=== PATIENT | male | born 1965 | race Caucasian/White ===

== ENCOUNTER 2020-09-03 15:39 | Inpatient (IN) ==
[2020-09-04] MEDS: Acetaminophen 325 MG TABLET PO PRN (17:42)
[2020-09-04] MEDS: Metoprolol XL (24 HR) Succ 25 MG TAB.ER.24H PO SCH (17:43)
[2020-09-04] MEDS: Gabapentin 300 MG CAPSULE PO SCH (21:05)
[2020-09-04] MEDS ORDERED: Morphine Sulfate 2 MG/ML SYRINGE IVP ONE (22:16)
[2020-09-04] MEDS ORDERED: Nitroglycerin 1 INCH/GM PACKET TP ONE (22:58)
[2020-09-04] MEDS ORDERED: Nitroglycerin 0.4 MG TAB.SUBL SL PRN (22:59)
[2020-09-04] MEDS ORDERED: Ondansetron 4 MG/2 ML VIAL IVP ONE (23:31)
[2020-09-04] MEDS ORDERED: *HR* FentaNYL (PF) 100 MCG/2 ML VIAL IVP ONE (23:47)
[2020-09-05] MEDS ORDERED: GI Cocktail 40 ML EACH PO ONE (00:08)
[2020-09-05] MEDS ORDERED: Ondansetron 4 MG/2 ML VIAL IVP PRN (04:47)
[2020-09-05] MEDS: dexAMETHasone 4 MG TABLET PO SCH (07:42)
[2020-09-05] MEDS: Famotidine 20 MG TABLET PO SCH (07:42)
[2020-09-05] MEDS: Gabapentin 300 MG CAPSULE PO SCH ×3 (07:42→20:14)
[2020-09-05] MEDS: Multivit/Ca/Min/Fe/FA 1 TAB TABLET PO SCH (07:43)
[2020-09-05 10:15] LABS: Basophils # 0.1 K/mcL (0.0-0.2); Basophils % 0.8 %; Eosinophils % 0.1 %; Hemoglobin 18.1 g/dL (12.9-16.9); Immature Granulocytes % 1.9 % (0-4); Lymphocytes # 1.1 K/mcL (0.6-4.6); Lymphocytes % 11.3 %; Mean Corpuscular HGB Conc 34.8 g/dL (31.6-35.5); Mean Corpuscular Hemoglobin 31.6 pg (28.0-33.3); Mean Corpuscular Volume 90.9 fL (83.0-100.0); Mean Platelet Volume 9.8 fL (9.4-12.4); Monocytes # 0.6 K/mcL (0.0-1.3); Monocytes % 6.5 %; Neutrophils # 7.5 K/mcL (1.6-8.9); Platelet Count 174 K/mcL (140-400); Red Blood Count 5.72 M/mcL (4.19-5.50); Red Cell Distribution Width 13.1 % (11.5-14.5); Segmented Neutrophils % 79.4 %; White Blood Count 9.4 K/mcL (4.3-11.1)
[2020-09-05 10:34] LABS: BUN/Creatinine Ratio 35 (6-26); Blood Urea Nitrogen 23 mg/dL (6-20); Calcium 8.7 mg/dL (8.6-10.3); Carbon Dioxide 29 mEq/L (23-29); Chloride 97 mEq/L (98-107); Glucose 129 mg/dL (70-105); Osmolality,Calculated 283 (280-300); Sodium 134 mEq/L (136-145); Troponin I < 0.03 ng/mL (< 0.04); eGFR For African Americans > 60 (> 60); eGFR For Non-African Americans > 60 (> 60)
[2020-09-05] MEDS: Metoprolol XL (24 HR) Succ 25 MG TAB.ER.24H PO SCH (18:14)
[2020-09-05 20:16] LABS: C-Reactive Protein 32 mg/L (Less than 10)
[2020-09-05 20:41] LABS: Ferritin > 1500 ng/mL (20-250)
[2020-09-06] MEDS ORDERED: GI Cocktail 40 ML EACH PO ONE (03:26)
[2020-09-06 07:47] LABS: Hemoglobin 18.2 g/dL (12.9-16.9); Mean Corpuscular HGB Conc 34.3 g/dL (31.6-35.5); Mean Corpuscular Hemoglobin 31.7 pg (28.0-33.3); Mean Corpuscular Volume 92.3 fL (83.0-100.0); Mean Platelet Volume 9.8 fL (9.4-12.4); Platelet Count 180 K/mcL (140-400); Red Blood Count 5.74 M/mcL (4.19-5.50); White Blood Count 9.2 K/mcL (4.3-11.1)
[2020-09-06 08:01] LABS: Alanine Aminotransferase 204 Units/L (7-52); Albumin 3.4 g/dL (3.5-5.7); Alkaline Phosphatase 74 Units/L (34-104); Aspartate Amino Transferase 129 Units/L (13-39); BUN/Creatinine Ratio 31 (6-26); Bilirubin,Total 0.7 mg/dL (0.3-1.0); Blood Urea Nitrogen 20 mg/dL (6-20); Calcium 8.5 mg/dL (8.6-10.3); Carbon Dioxide 29 mEq/L (23-29); Chloride 100 mEq/L (98-107); Globulin 3.3 g/dL (2.4-3.5); Glucose 107 mg/dL (70-105); Osmolality,Calculated 285 (280-300); Potassium 4.1 mEq/L (3.5-5.1); Sodium 136 mEq/L (136-145); Total Protein 6.7 g/dL (6.4-8.9); eGFR For African Americans > 60 (> 60); eGFR For Non-African Americans > 60 (> 60)
[2020-09-06] MEDS: Famotidine 20 MG TABLET PO SCH (08:43)
[2020-09-06] MEDS: dexAMETHasone 4 MG TABLET PO SCH (08:43)
[2020-09-06] MEDS: Gabapentin 300 MG CAPSULE PO SCH ×3 (08:43→21:13)
[2020-09-06] MEDS: Multivit/Ca/Min/Fe/FA 1 TAB TABLET PO SCH (08:43)
[2020-09-06] MEDS: Metoprolol XL (24 HR) Succ 25 MG TAB.ER.24H PO SCH (18:10)
[2020-09-07] MEDS: Acetaminophen 325 MG TABLET PO PRN (06:45)
[2020-09-07 06:58] VITALS: BP 118/79
[2020-09-07] MEDS: dexAMETHasone 4 MG TABLET PO SCH (08:41)
[2020-09-07] MEDS: Famotidine 20 MG TABLET PO SCH (08:42)
[2020-09-07] MEDS: Multivit/Ca/Min/Fe/FA 1 TAB TABLET PO SCH (08:42)
[2020-09-07] MEDS: Gabapentin 300 MG CAPSULE PO SCH (08:42)
== END 2020-09-07 13:38 | disposition other institution (70) | DRG 177 ==
LOC: INPPIK 09-04 12:15
PROVIDERS: ADMIT Family Medicine; ATTEND Family Medicine

== ENCOUNTER 2020-09-07 09:59 | Inpatient (IN) ==
[2020-09-07] MEDS ORDERED: Ondansetron ODT 4 MG TAB.RAPDIS SL PRN (11:04)
[2020-09-07] MEDS: Gabapentin 300 MG CAPSULE PO SCH ×2 (14:45→20:18)
[2020-09-07] MEDS: Metoprolol XL (24 HR) Succ 25 MG TAB.ER.24H PO SCH (17:03)
[2020-09-08] MEDS: Acetaminophen 325 MG TABLET PO PRN ×2 (02:21→08:40)
[2020-09-08] MEDS: Famotidine 20 MG TABLET PO SCH (08:39)
[2020-09-08] MEDS: Gabapentin 300 MG CAPSULE PO SCH ×3 (08:40→20:19)
[2020-09-08] MEDS: Multivit/Ca/Min/Fe/FA 1 TAB TABLET PO SCH (08:40)
[2020-09-08] MEDS ORDERED: dexAMETHasone 4 MG TABLET PO SCH (09:00)
[2020-09-08] MEDS: Metoprolol XL (24 HR) Succ 25 MG TAB.ER.24H PO SCH (17:16)
[2020-09-09 06:15] LABS: Hematocrit 49.2 % (37.5-50.1); Mean Corpuscular HGB Conc 34.6 g/dL (31.6-35.5); Mean Corpuscular Hemoglobin 31.7 pg (28.0-33.3); Mean Corpuscular Volume 91.6 fL (83.0-100.0); Mean Platelet Volume 10.1 fL (9.4-12.4); Platelet Count 277 K/mcL (140-400); Red Blood Count 5.37 M/mcL (4.19-5.50); Red Cell Distribution Width 12.8 % (11.5-14.5); White Blood Count 12.9 K/mcL (4.3-11.1)
[2020-09-09 06:31] LABS: Alanine Aminotransferase 303 Units/L (7-52); Albumin 3.3 g/dL (3.5-5.7); Albumin/Globulin Ratio 1.1 (1.1-2.2); Alkaline Phosphatase 69 Units/L (34-104); Aspartate Amino Transferase 155 Units/L (13-39); BUN/Creatinine Ratio 21 (6-26); Bilirubin,Total 0.7 mg/dL (0.3-1.0); Blood Urea Nitrogen 12 mg/dL (6-20); Calcium 8.6 mg/dL (8.6-10.3); Carbon Dioxide 27 mEq/L (23-29); Chloride 102 mEq/L (98-107); Globulin 3.1 g/dL (2.4-3.5); Glucose 99 mg/dL (70-105); Osmolality,Calculated 282 (280-300); Sodium 136 mEq/L (136-145); Total Protein 6.4 g/dL (6.4-8.9); eGFR For African Americans > 60 (> 60); eGFR For Non-African Americans > 60 (> 60)
[2020-09-09] MEDS: Multivit/Ca/Min/Fe/FA 1 TAB TABLET PO SCH (09:14)
[2020-09-09] MEDS: Gabapentin 300 MG CAPSULE PO SCH ×3 (09:14→20:23)
[2020-09-09] MEDS: Famotidine 20 MG TABLET PO SCH (09:14)
[2020-09-09] MEDS: Acetaminophen 325 MG TABLET PO PRN (09:20)
[2020-09-09] MEDS: Metoprolol XL (24 HR) Succ 25 MG TAB.ER.24H PO SCH (17:45)
[2020-09-10] MEDS: Acetaminophen 325 MG TABLET PO PRN ×2 (03:22→10:02)
[2020-09-10 06:31] LABS: Hematocrit 47.5 % (37.5-50.1); Hemoglobin 16.6 g/dL (12.9-16.9); Mean Corpuscular HGB Conc 34.9 g/dL (31.6-35.5); Mean Corpuscular Volume 91.5 fL (83.0-100.0); Mean Platelet Volume 9.9 fL (9.4-12.4); Platelet Count 275 K/mcL (140-400); Red Blood Count 5.19 M/mcL (4.19-5.50); Red Cell Distribution Width 12.9 % (11.5-14.5); White Blood Count 9.3 K/mcL (4.3-11.1)
[2020-09-10 06:48] LABS: BUN/Creatinine Ratio 25 (6-26); Blood Urea Nitrogen 14 mg/dL (6-20); Calcium 8.5 mg/dL (8.6-10.3); Carbon Dioxide 25 mEq/L (23-29); Chloride 103 mEq/L (98-107); Glucose 97 mg/dL (70-105); Osmolality,Calculated 282 (280-300); Potassium 3.9 mEq/L (3.5-5.1); Sodium 136 mEq/L (136-145); eGFR For African Americans > 60 (> 60); eGFR For Non-African Americans > 60 (> 60)
[2020-09-10 07:14] LABS: Platelet Estimate Normal (Normal)
[2020-09-10 07:18] LABS: Lymphocytes # 2.1 K/mcL (0.6-4.6); Monocytes # 0.7 K/mcL (0.0-1.3); Neutrophils # 6.5 K/mcL (1.6-8.9)
[2020-09-10] MEDS: Multivit/Ca/Min/Fe/FA 1 TAB TABLET PO SCH (08:24)
[2020-09-10] MEDS: Famotidine 20 MG TABLET PO SCH (08:24)
[2020-09-10] MEDS: Gabapentin 300 MG CAPSULE PO SCH ×3 (08:24→20:53)
[2020-09-10 10:04] LABS: C-Reactive Protein < 5 mg/L (Less than 10); Ferritin > 1500 ng/mL (20-250)
[2020-09-10] MEDS: Metoprolol XL (24 HR) Succ 25 MG TAB.ER.24H PO SCH (16:17)
[2020-09-11] MEDS: Famotidine 20 MG TABLET PO SCH (08:48)
[2020-09-11] MEDS: Multivit/Ca/Min/Fe/FA 1 TAB TABLET PO SCH (08:48)
[2020-09-11] MEDS: Gabapentin 300 MG CAPSULE PO SCH ×3 (08:48→21:12)
[2020-09-11] MEDS: Acetaminophen 325 MG TABLET PO PRN (08:51)
[2020-09-11] MEDS: Metoprolol XL (24 HR) Succ 25 MG TAB.ER.24H PO SCH (16:01)
[2020-09-12] MEDS: Acetaminophen 325 MG TABLET PO PRN ×2 (01:11→17:49)
[2020-09-12] MEDS: Gabapentin 300 MG CAPSULE PO SCH ×3 (07:56→19:41)
[2020-09-12] MEDS: Multivit/Ca/Min/Fe/FA 1 TAB TABLET PO SCH (07:56)
[2020-09-12] MEDS: Famotidine 20 MG TABLET PO SCH (07:56)
[2020-09-12] MEDS: Ibuprofen 600 MG TABLET PO PRN (11:22)
[2020-09-12] MEDS: Metoprolol XL (24 HR) Succ 25 MG TAB.ER.24H PO SCH (17:50)
[2020-09-13] MEDS: Ibuprofen 600 MG TABLET PO PRN ×2 (03:19→19:40)
[2020-09-13] MEDS: Famotidine 20 MG TABLET PO SCH (09:21)
[2020-09-13] MEDS: Acetaminophen 325 MG TABLET PO PRN (09:21)
[2020-09-13] MEDS: Gabapentin 300 MG CAPSULE PO SCH ×3 (09:21→19:40)
[2020-09-13] MEDS: Multivit/Ca/Min/Fe/FA 1 TAB TABLET PO SCH (09:21)
[2020-09-13] MEDS: Metoprolol XL (24 HR) Succ 25 MG TAB.ER.24H PO SCH (17:53)
[2020-09-14 07:01] VITALS: BP 138/84
[2020-09-14] MEDS: Multivit/Ca/Min/Fe/FA 1 TAB TABLET PO SCH (08:20)
[2020-09-14] MEDS: Famotidine 20 MG TABLET PO SCH (08:21)
[2020-09-14] MEDS: Gabapentin 300 MG CAPSULE PO SCH (08:21)
[2020-09-14] MEDS: Ibuprofen 600 MG TABLET PO PRN (10:54)
== END 2020-09-14 13:32 | disposition home or self-care (01) | DRG 177 ==
LOC: INPPIK 13:36
PROVIDERS: ADMIT Family Medicine; ATTEND Family Medicine